=== PATIENT | female | born 1955 | race Caucasian/White ===

== ENCOUNTER → 2018-01-01 | Day surgery (SDC) | payer OTHER, MEDICARE ==
[2017-12-30 12:00] VITALS: BMI 26.4
[~2018-01-01] MED LIST: BUPIVACAINE (PF) 0.5% 30 ML VIAL SQ ONE; DEXAMETHASONE SOD PHOSPHATE 10 MG/ML 1 ML VIAL IV ONE; HEPARIN SODIUM,PORCINE 5,000 UNIT/ML 1 ML VIAL SQ ONE; HYDROcodone/APAP 7.5-325MG 1 EACH TAB PO ONE; KETOROLAC 30 MG/ML 1 ML VIAL ONE; LACTATED RINGERS 1,000 ML IV SCH; LIDOCAINE 1% 20 ML VIAL (10MG/ML) FOR IV START INTRADERMA ONE; LIDOCAINE 1% INJ 10MG/ML (20 ML MDV) ONE; LIDOCAINE 1% INJ 10MG/ML (20 ML MDV) SQ ONE; MIDAZOLAM 2 MG/2 ML VIAL IV PRN; MIDAZOLAM 2 MG/2 ML VIAL ONE; ONDANSETRON 4 MG/2 ML VIAL IVP ONE; PROPOFOL 10 MG/ML 20 ML VIAL IV ONE; Pre Op ABX Message 1 EACH MISC MISCELLANE ONE; SCOPOLAMINE 1.5MG/72HR PATCH TRANSDERM ONE; SODIUM BICARB 4% 5 ML VIAL (0.48 MEQ/ML) MISCELLANE ONE; fentaNYL (PF) 50 MCG/ML 2 ML AMP ONE
--- NOTE | 2018-01-01 08:16 | P.GSHP ---
History of Present Illness H&P Date: 01/01/18 Chief Complaint: Abnormal right mammogram This is a 8-year-old female who presents today for right breast biopsy with needle localization. Patient a previous core biopsy performed which showed intraductal papilloma. Patient presents today for needle localized biopsy. Past Medical History Past Medical History: COPD, Hyperlipidemia, Musculoskeletal Disorder, Rheumatoid Arthritis (RA), Skin Disorder Additional Past Medical History / Comment(s): PSORIASIS RIGHT PALM, HX OF BLEEDING RIGHT NIPPLE History of Any Multi-Drug Resistant Organisms: None Reported Past Surgical History: Hysterectomy, Orthopedic Surgery, Tonsillectomy Additional Past Surgical History / Comment(s): RT ANKLE FX, WITH METAL Past Anesthesia/Blood Transfusion Reactions: Postoperative Nausea & Vomiting ( PONV) Smoking Status: Current every day smoker - Past Family History Mother Family Medical History: Cancer Additional Family Medical History / Comment(s): liver Medications and Allergies Home Medications Medication Instructions Recorded Confirmed Type ALPRAZolam [Xanax] 1 mg PO BID 01/18/14 01/01/18 History Baclofen [Lioresal] 20 mg PO DAILY 01/18/14 01/01/18 History Cholecalciferol [Vitamin D3] 2,000 unit PO DAILY@1200 01/18/14 01/01/18 History Estrogens, Conjugated [Premarin] 0.625 mg PO DAILY 01/18/14 01/01/18 History Leflunomide [Arava] 20 mg PO DAILY 01/18/14 01/01/18 History Meloxicam 15 mg PO DAILY 01/18/14 01/01/18 History PARoxetine HCL [Paxil] 60 mg PO HS 01/18/14 01/01/18 History Simvastatin [Zocor] 40 mg PO HS 01/18/14 01/01/18 History busPIRone HCL [Buspar] 15 mg PO BID 01/18/14 01/01/18 History Albuterol Nebulized [Ventolin 2.5 mg INHALATION Q4H PRN 11/07/14 01/01/18 History Nebulized] Ibuprofen [Motrin] 800 mg PO Q6HR PRN #20 tab 11/07/14 01/01/18 Rx Aspirin 325 mg PO DAILY 12/30/17 01/01/18 History Allergies Allergy/AdvReac Type Severity Reaction Status Date / Time Tetracyclines Allergy Nausea & Verified 01/01/18 08:07 Vomiting venom-honey bee Allergy Anaphylaxis Verified 01/01/18 08:07 [bee venom (honey bee)] procaine [From Novocain] AdvReac HEART Verified 01/01/18 08:07 PALPITATIONS/ANXIETY Surgical - Exam - General well developed, well nourished, no distress - Eyes PERRL - ENT normal pinna - Neck no masses - Respiratory normal expansion - Cardiovascular Rhythm: regular - Abdomen Abdomen: soft, non tender - Integumentary Breasts are within normal limits. There is no mass palpable there is no axillary lymphadenopathy Assessment and Plan Assessment: Abnormal mammogram with intraductal papilloma. We'll perform needle localized biopsy.
[2018-01-01 09:23] VITALS: RESP 16
[2018-01-01 11:13] VITALS: TEMP 97.1
[2018-01-01] MEDS: fentaNYL (PF) 50 MCG/ML 2 ML AMP IV PRN ×2 (11:34→11:49)
[2018-01-01 12:51] VITALS: BP 112/76; PULSE 89
--- NOTE | 2018-01-01 13:29 | P.OP ---
Date of Procedure: 01/01/18 Preoperative Diagnosis: Abnormal right mammogram Postoperative Diagnosis: Abnormal right mammogram Procedure(s) Performed: Right breast lumpectomy with ultrasound-guided needle localization Anesthesia: MALIA Surgeon: Maximilian Fritz Estimated Blood Loss (ml): 10 Pathology: other (Right breast lumpectomy) Condition: stable Disposition: PACU Description of Procedure: The patient's placed on the operating table in the supine position. She received general anesthesia. Her right breast was prepped and draped in usual sterile fashion. The wire had been previously placed by the radiologist. A curvilinear incision was made at the wire site. And then using cautery the subcutaneous tissue divided. Then using the Harmonic focus the core of tissue around the wire site was dissected. The specimen was sent to mammography. The clip was contained within the specimen. At this point the Bovie was used hemostasis. Clips are placed in the biopsy cavity. The skin was closed interrupted 3-0 Monocryl suture. Dermabond was applied. Patient top procedure well and was sent to recovery room stable condition.
--- NOTE | 2018-01-06 16:22 | MM ---
EXAMINATION TYPE: MG pre op needle loc RT DATE OF EXAM: 01/01/2018 COMPARISON: NONE CLINICAL HISTORY: Abnormal mammogram previous abnormal biopsy results, high risk. TECHNIQUE: Needle localization with wire placement and surgical excision of area of concern in the [facility] breast. FINDINGS: The procedure of needle localization with wire placement and than surgical excision was exp lained to the patient. Benefits, alternatives, and risks were discussed. An informed consent was th en obtained. The shortest pathway for procedure was chosen. Shortest pathway was lateral to medial approach. The overlying skin was prepped and draped in usual sterile fashion. Lidocaine buffered with bicarbonate was used as anesthetic into the skin and subcutaneous tissue up to the level of area of concern. A 7 cm needle was used. It was placed via a lateral approach under mammographic guidance. Subsequent 9 0 degrees mammogram show the needle to be in satisfactory position relative to the targeted area, a p reviously placed surgical clip. At this point, wire was placed and the needle was withdrawn. The wi re was fixed to patient's skin. Images were marked for surgeon. The patient tolerated the procedure well without any immediate complication. The patient was kept in the radiology department for short stay after the procedure and then taken to surgery for surgical e xcision. Surgical clip and wire are identified in specimen mammogram. The patient was kept in hospi coret[facility] for short stay after the procedure and then discharged home in stable condition. Specimen: Specimen mammogram is obtained. The surgical clip is within the specimen. Wire overlies the specimen. There is a cut wire within the specimen. IMPRESSION: 1. Successful wire localization and excision of a previously placed surgical clip.
== END | disposition home or self-care (01) ==
LOC: OR 07:40
PROVIDERS: ATTEND Surgery
DX: D24.1 Benign neoplasm of right breast (principal); N60.11 Diffuse cystic mastopathy of right breast; N60.21 Fibroadenosis of right breast; N62 Hypertrophy of breast; J44.9 Chronic obstructive pulmonary disease, unspecified; E78.5 Hyperlipidemia, unspecified; M06.9 Rheumatoid arthritis, unspecified; L40.9 Psoriasis, unspecified; F41.9 Anxiety disorder, unspecified; F32.9 Major depressive disorder, single episode, unspecified; F17.210 Nicotine dependence, cigarettes, uncomplicated; Z79.1 Long term (current) use of non-steroidal anti-inflammatories (NSAID); Z79.82 Long term (current) use of aspirin; Z79.890 Hormone replacement therapy; Z79.899 Other long term (current) drug therapy; Z88.1 Allergy status to other antibiotic agents; Z91.030 Bee allergy status; Z88.4 Allergy status to anesthetic agent
CPT/HCPCS: 93005; 88307; 76098; 19281; 19125; J2250; J1644; J1100; J2405; J2001; J3010; J1885; J2704; 88341; 88342

== ENCOUNTER → 2020-06-02 | Outpatient (CLI) | payer OTHER, MEDICARE ==
--- NOTE | 2020-06-04 12:37 | PE ---
EXAMINATION TYPE: PET CT fusion skull to thigh DATE OF EXAM: 06/02/2020 COMPARISON: CT chest 09/17/2015 Prior PET/CT: None HISTORY: Lung nodule TECHNIQUE: Following the intravenous administration of 11.9 mCi of F-18 FDG, whole body images are p erformed from the skull base to the midthigh. Images are reviewed on the computer in the coronal, ax ial, and sagittal planes. Reconstructed rotating images are created on independent workstation and r eviewed on the computer. A localization and attenuation correction CT is performed in conjunction w ith the PET scan. SCAN: Initial Scan Blood glucose: 105 mg/dL FINDINGS: NECK: No abnormal hypermetabolic activity. THORAX: No abnormal hypermetabolic activity. ABDOMEN/PELVIS: No abnormal hypermetabolic activity. OSSEOUS STRUCTURES: No abnormal hypermetabolic activity. LOCALIZATION CT: Redemonstrated 5 mm pulmonary nodule of the right upper lobe. There is a perifissura l lymph node of the minor fissure redemonstrated. Calcified coronary artery disease. Postsurgical sy nges of the right breast. Left liver hypodense lesion likely represent cyst. Status post cholecystect travis. Colonic diverticulosis. No acute diverticulitis. Status post hysterectomy. Degenerative changes of the spine. COMPARISON: 5 mm pulmonary nodule of the right upper lobe not significantly changed versus 2016 CT co mparison given differences in technique. IMPRESSION: 1. No abnormal hypermetabolic activity. 2. 5 mm pulmonary nodule of the right upper lobe is not significantly changed versus 2016 CT comparis on, and likely benign. This nodule is below threshold criteria for PET CT.
== END | disposition home or self-care (01) ==
LOC: RADPETMAIN 08:01
PROVIDERS: ATTEND Internal Medicine Critical Care Medicine
DX: R91.1 Solitary pulmonary nodule (principal)
CPT/HCPCS: 78815; A9552

== ENCOUNTER 2023-11-02 22:53 | Inpatient (IN) | payer BC, MEDICARE ==
[2023-11-02] MEDS ORDERED: NITROGLYCERIN SL TABS 0.4 MG TAB SUBLINGUAL PRN (23:02)
[2023-11-02] MEDS: HEPARIN SODIUM 1,000 UN/ML (10ML VL) IV ONE ×2 (23:10→23:42)
[2023-11-02] MEDS: ONDANSETRON 4 MG/2 ML VIAL IVP STA (23:11)
[2023-11-02] MEDS: SODIUM CHLORIDE 0.9% 1,000 ML IV STA (23:12)
[2023-11-02] MEDS: MORPHINE SULFATE 4 MG/ML SYRINGE IV PRN (23:13)
--- NOTE | 2023-11-02 23:13 | ED ---
Chest Pain HPI - General Chief Complaint: Chest Pain Stated Complaint: STEMI Source: patient, EMS, RN notes reviewed, old records reviewed Mode of arrival: EMS Limitations: no limitations - History of Present Illness Initial Comments: This is a 68-year-old female to the ER for evaluation of acute chest pain sudden onset of chest pain and back pain that occurred as she was getting ready for bed tonight. Patient has significant shortness of breath but not much different than her normal COPD dyspnea, patient is having back pain and chest pain and tightness currently with which did present with some clamminess and s sweating weaty patient's chest pain been going on for about 2 hours now accompanied by nausea patient has history of smoking and high cholesterol MD Complaint: chest pain -: days(s) Onset: during rest, during exertion Pain Location: substernal, left chest Pain Radiation: LUE Severity: moderate Severity scale (1-10): 4 Quality: tightness, aching Consistency: constant Improves With: nothing Worsens With: nothing Anginal Symptoms: diaphoresis, dyspnea, sense of impending doom Other Symptoms: palpitations Treatments Prior to Arrival: none - Related Data Home Medications Medication Instructions Recorded Confirmed Baclofen [Lioresal] 20 mg PO BID 01/18/14 11/03/23 Leflunomide [Arava] 20 mg PO DAILY 01/18/14 11/03/23 PARoxetine HCL [Paxil] 60 mg PO HS 01/18/14 11/03/23 busPIRone HCL [Buspar] 15 mg PO BID 01/18/14 11/03/23 Anastrozole 1 mg PO DAILY 11/03/23 11/03/23 Cholecalciferol [Vitamin D3 (25 50 mcg PO DAILY 11/03/23 11/03/23 Mcg = 1000 Iu)] Clorazepate Dipotassium [Tranxene 15 mg PO BID 11/03/23 11/03/23 T] Cyanocobalamin (Vitamin B-12) 1,000 mcg PO DAILY 11/03/23 11/03/23 [Vitamin B-12] Fluticasone/Umeclidin/Vilanter 1 puff INHALATION DAILY 11/03/23 11/03/23 [Trelegy Ellipta 200-62.5-25] Folic Acid 0.4 mg PO DAILY 11/03/23 11/03/23 Ondansetron Odt [Zofran ODT] 4 mg PO Q8HR PRN 11/03/23 11/03/23 Orencia (Unknown Dose) 1 dose IV QMONTHLY 11/03/23 11/03/23 Pyridoxine HCl (Vitamin B6) 100 mg PO DAILY 11/03/23 11/03/23 [Vitamin B-6] predniSONE 5 mg PO DAILY PRN 11/03/23 11/03/23 Previous Rx's Medication Instructions Recorded Aspirin 81 mg PO DAILY #30 tab 11/04/23 Atorvastatin [Lipitor] 80 mg PO DAILY #30 tab 11/04/23 Losartan [Cozaar] 12.5 mg PO DAILY #30 tab 11/04/23 Metoprolol Tartrate [Lopressor] 25 mg PO BID #60 tab 11/04/23 Nitroglycerin Sl Tabs [Nitrostat] 0.4 mg SUBLINGUAL Q5M PRN #30 tab 11/04/23 Ticagrelor [Brilinta] 90 mg PO BID #60 tab 11/04/23 Allergies Allergy/AdvReac Type Severity Reaction Status Date / Time venom-honey bee Allergy Anaphylaxis Verified 11/03/23 09:44 [bee venom (honey bee)] procaine [From Novocain] AdvReac HEART Verified 11/03/23 09:44 PALPITATIONS/ANXIETY Tetracyclines AdvReac Nausea & Verified 11/03/23 09:44 Vomiting Review of Systems ROS Statement: Those systems with pertinent positive or pertinent negative responses have been documented in the HPI. ROS Other: All systems not noted in ROS Statement are negative. Past Medical History Past Medical History: COPD, Hyperlipidemia, Musculoskeletal Disorder, Rheumatoid Arthritis (RA), Skin Disorder Additional Past Medical History / Comment(s): PSORIASIS RIGHT PALM, HX OF BLEEDING RIGHT NIPPLE History of Any Multi-Drug Resistant Organisms: None Reported Past Surgical History: Hysterectomy, Orthopedic Surgery, Tonsillectomy Additional Past Surgical History / Comment(s): RT ANKLE FX, WITH METAL Past Anesthesia/Blood Transfusion Reactions: Postoperative Nausea & Vomiting (PONV) Past Psychological History: Anxiety, Depression Past Alcohol Use History: Rare Past Drug Use History: None Reported - Past Family History Mother Family Medical History: Cancer Additional Family Medical History / Comment(s): liver General Exam General appearance: alert, in no apparent distress Head exam: Present: atraumatic, normocephalic, normal inspection Eye exam: Present: normal appearance, PERRL, EOMI. Absent: scleral icterus, conjunctival injection, periorbital swelling ENT exam: Present: normal exam, mucous membranes moist Neck exam: Present: normal inspection. Absent: tenderness, meningismus, lymphadenopathy Respiratory exam: Present: normal lung sounds bilaterally. Absent: respiratory distress, wheezes, rales, rhonchi, stridor Cardiovascular Exam: Present: regular rate, normal rhythm, normal heart sounds. Absent: systolic murmur, diastolic murmur, rubs, gallop, clicks GI/Abdominal exam: Present: soft, normal bowel sounds. Absent: distended, tenderness, guarding, rebound, rigid Extremities exam: Present: normal inspection, full ROM, normal capillary refill. Absent: tenderness, pedal edema, joint swelling, calf tenderness Back exam: Present: normal inspection Neurological exam: Present: alert, oriented X3, CN II-XII intact Psychiatric exam: Present: normal affect, normal mood Skin exam: Present: warm, dry, intact, normal color. Absent: rash Course Vital Signs 11/02/23 11/02/23 11/02/23 22:55 23:25 23:35 Pulse Rate 77 59 L 59 L Respiratory 22 22 22 Rate Blood Pressure 160/97 151/89 151/85 O2 Sat by Pulse 96 97 97 Oximetry - Reevaluation(s) Reevaluation #1: 11/02/23 23:09 Record is reviewed Reevaluation #2: 11/02/23 23:09 Patient has persistent chest pain although improved here in the ER Vital signs are normal stable Reevaluation #3: 11/02/23 23:10 Patient informed of results and questions answered Reevaluation #4: Was pt. sent in by a medical professional or institution (, PA, LEAD ACCOUNTANT, urgent care, hospital, or half-way...) When possible be specific @ -no Did you speak to anyone other than the patient for history (EMS, parent, family, police, friend...)? What history was obtained from this source @ -no Did you review nursing and triage notes (agree or disagree)? Why? @ -agree Are old charts reviewed (outside hosp., previous admission, EMS record, old EKG, old radiological studies, urgent care reports/EKG's, half-way records)? Report findings @ -yes Differential Diagnosis (chest pain, altered mental status, abdominal pain women, abdominal pain men, vaginal bleeding, weakness, fever, dyspnea, syncope, headache, dizziness, GI bleed, back pain, seizure, CVA, palpatations, mental health, musculoskeletal)? @ -prior EKG interpreted by me (3pts min.). @ -yes X-rays interpreted by me (1pt min.). @ -yes negative for acute disease CT interpreted by me (1pt min.). @ -no U/S interpreted by me (1pt. min.). @ -no What testing was considered but not performed or refused? (CT, X-rays, U/S, labs)? Why? @ -none What meds were considered but not given or refused? Why? @ -none Did you discuss the management of the patient with other professionals (professionals i.e. , PA, LEAD ACCOUNTANT, lab, RT, psych nurse, psych social worker, top trimmer, teacher, project control officer, lining caser)? Give summary @ -no Was smoking cessation discussed for >3mins.? @ -no Was critical care preformed (if so, how long)? @ -yes31 Were there social determinants of health that impacted care today? How? (Homelessness, low income, unemployed, alcoholism, drug addiction, transportation, low edu. Level, literacy, decrease access to med. care, usp, rehab)? @ -none Was there de-escalation of care discussed even if they declined (Discuss DNR or withdrawal of care, Hospice)? DNR status @ -no What co-morbidities impacted this encounter? (DM, HTN, Smoking, COPD, CAD, Can cer, CVA, ARF, Chemo, Hep., AIDS, mental health diagnosis, sleep apnea, morbid obesity)? @ -none Was patient admitted / discharged? Hospital course, mention meds given and route, prescriptions, significant lab abnormalities, going to OR and other pertinent info. @ - [address] acute [address] elevated VT coming in for severe chest pain. Patient is admitted for cardiology evaluation and treatment here in the emergency department with persistent severe chest pain Admitted Undiagnosed new problem with uncertain prognosis? @ -no Drug Therapy requiring intensive monitoring for toxicity (Heparin, Nitro, Insulin, Cardizem)? @ -no Were any procedures done? @ -no Diagnosis/symptom? @ -ST elevation VT Acute, or Chronic, or Acute on Chronic? @ -Acute Uncomplicated (without systemic symptoms) or Complicated (systemic symptoms)? @ -Complicated Side effects of treatment? @ -no Exacerbation, Progression, or Severe Exacerbation? @ -exacerbation Poses a threat to life or bodily function? How? (Chest pain, USA, VT, pneumonia, PE, COPD, DKA, ARF, appy, cholecystitis, CVA, Diverticulitis, Homicidal, Suicidal, threat to staff... and all critical care pts) @ -yes significant ST elevation VT Reevaluation #5: Differential Chest Pain: Stable Angina, Unstable Angina, STEMI, NSTEMI Aortic Dissection, Pneumothorax, Musculoskeletal, Esophageal Spasm GERD, Cholecystitis, Pancreatitis, Zoster, this is not meant to be an all-inclusive list. - Consultations Consultation #1: Spoke with cardiology who will see the patient in the ER Consultation #2: Spoke with EM who agrees to admit this patient Chest Pain MDM - MDM 68 [address] with acute [address] elevated VT coming in for severe chest pain. Patient is admitted for cardiology evaluation and treatment here in the emergency department with persistent severe chest pain Critical Care Time Critical Care Time: Yes Total Critical Care Time: 31 Disposition Clinical Impression: Chest pain, ST elevation myocardial infarction (STEMI), COPD (chronic obstructive pulmonary disease) Disposition: ADMITTED IP TO THIS HOSP Condition: Good Is patient prescribed a controlled substance at d/c from ED?: No Time of Disposition: 23:45
--- NOTE | 2023-11-02 23:15 | XR ---
EXAMINATION TYPE: XR chest 1V portable DATE OF EXAM: 11/02/2023 COMPARISON: Chest CT 2015 HISTORY: Chest pain TECHNIQUE: Single frontal view of the chest is obtained. FINDINGS: There is no focal air space opacity, pleural effusion, or pneumothorax seen. The cardiac silhouette size remains within normal limits. The osseous structures are intact. IMPRESSION: No acute process.
[2023-11-02] MEDS: HYDROmorphone 0.5 MG/0.5 ML SYRINGE IVP STA (23:16)
[2023-11-02] MEDS: ASPIRIN 81 MG PO STA (23:16)
[2023-11-02 23:32] LABS: Basophils # (A) 0.1 k/uL (0-0.2); Basophils % (A) 1 %; Eosinophils # (A) 0.2 k/uL (0-0.7); Eosinophils % (A) 2 %; HCT 43.1 % (34.0-46.0); HGB 14.1 gm/dL (11.4-16.0); Lymphocytes # (A) 2.2 k/uL (1.0-4.8); Lymphocytes % (A) 30 %; MCH 29.8 pg (25.0-35.0); MCHC 32.8 g/dL (31.0-37.0); MCV 90.9 fL (80.0-100.0); Monocytes # (A) 0.5 k/uL (0-1.0); Monocytes % (A) 7 %; Neutrophils # (A) 4.3 k/uL (1.3-7.7); Neutrophils % (A) 57 %; Platelet Count 265 k/uL (150-450); RBC 4.74 m/uL (3.80-5.40); RDW 14.2 % (11.5-15.5); WBC 7.4 k/uL (3.8-10.6)
[2023-11-02] MEDS ORDERED: fentaNYL (PF) 50 MCG/ML 2 ML AMP ONE (23:39)
[2023-11-02] MEDS ORDERED: HEPARIN SODIUM 1,000 UN/ML (10ML VL) ONE (23:39)
[2023-11-02] MEDS: IV FLUID CONTINUATION 1,000 ML IV ONE (23:40)
[2023-11-02] MEDS: LIDOCAINE 1% INJ 10MG/ML (20 ML MDV) SQ ONE ×2 (23:40→23:42)
[2023-11-02 23:42] LABS: ALT 103 U/L (4-34); AST 117 U/L (14-36); African American GFR (CKD) 65 (>60 ml/min/1.73 sqM); Alkaline Phosphatase 81 U/L (38-126); Anion Gap 9 mmol/L; Blood Urea Nitrogen 15 mg/dL (7-17); Calcium 8.8 mg/dL (8.4-10.2); Carbon Dioxide 24 mmol/L (22-30); Chloride 105 mmol/L (98-107); Glucose 105 mg/dL (74-99); Lipase 459 U/L (23-300); Magnesium 1.6 mg/dL (1.6-2.3); Non-African American GFR(CKD) 56 (>60 ml/min/1.73 sqM); Potassium 4.1 mmol/L (3.5-5.1); Sodium 138 mmol/L (137-145); Total Bilirubin 0.5 mg/dL (0.2-1.3); Total Protein 6.9 g/dL (6.3-8.2)
[2023-11-02] MEDS: MIDAZOLAM 2 MG/2 ML VIAL IVP ONE (23:42)
[2023-11-02] MEDS ORDERED: TICAGRELOR 90 MG TAB ONE (23:42)
[2023-11-02] MEDS: VERAPAMIL SYRINGE (5 MG/10 ML) INTRAARTER ONE (23:42)
[2023-11-02] MEDS: fentaNYL (PF) 50 MCG/ML 2 ML AMP IVP ONE (23:42)
[2023-11-02] MEDS: TICAGRELOR 90 MG TAB PO ONE (23:45)
[2023-11-02 23:51] LABS: NT-Pro-B-Type Natriuretic Pept 152 pg/mL
[2023-11-03 00:02] LABS: Partial Thromboplastin Time 22.6 sec (22.0-30.0); Prothrombin Time 11.1 sec (10.0-12.5)
[2023-11-03] MEDS: NITROGLYCERIN 1000MCG/10ML SYRINGE INTRACORON ONE (00:13)
[2023-11-03] MEDS: IOPAMIDOL-370 100ML BTL INJ ONE ×2 (00:14→00:35)
[2023-11-03 00:52] LABS: Glucose,Whole Blood 118 mg/dL (70-110)
[2023-11-03] MEDS ORDERED: ZOLPIDEM 5 MG TAB PO PRN (00:52)
[2023-11-03] MEDS ORDERED: RX INFO: IV CONTRAST WAS GIVEN 1 EACH MISC MISCELLANE PRN (00:52)
--- NOTE | 2023-11-03 00:52 | P.PRCINT ---
Percutaneous Coronary Int. - Percutaneous Coronary Intervention Percutaneous Coronary Intervention: PROCEDURES PERFORMED: Left heart catheterization, bilateral coronary angiography, ultrasound guided arterial access, PCI mid circumflex with 3.5 x 28 mm, post dilated with a 4.5mm NC proximally and 3.5mm NC distal edge of stent, IVUS circumflex, Penumbra aspiration thrombectomy of circumflex INDICATION: Inferior STEMI CONSENT:I have discussed the risks, benefits and alternative therapies for the above-mentioned procedure and for both sedation/analgesia as well as necessary blood product administration, if indicated, as they pertain to this patient. The patient has indicated understanding and acceptance of the risks and procedures discussed. PROCEDURE: After the risks, benefits and alternatives of the above mentioned procedure explained in detail with the patient, informed consent was obtained. Patient was taken to the catheterization lab and prepped and draped in usual fashion. Ultrasound guidance was used to assess for arterial access. 1% lidocaine was used to anesthetize the right radial artery. A 6-Tunisian sheath was placed in the right radial artery using modified Seldinger technique and ultrasound guidance. A 6-Tunisian AL 0.75 guide was used to engage the RCA and angiograms were performed. A 6-Tunisian FL 3.5 catheter was used engage the left main and angiograms were performed. The AL 0.75 guide was inserted into the left ventricle and pressure measurements were obtained. The decision was made to perform PCI of the circumflex. Heparin was given for ACT greater than 250. Next, a 6-Tunisian EBU 3.5 guide was used to engage the left main. A 0.014 BMW wire was advanced to the distal circumflex. Given heavy thrombus, penumbra aspiration thrombectomy was performed for 2 passes. Predilation was performed with a 3.0 x 12 mm balloon, with some watermeloning noted. Intravascular ultrasound showed distal reference vessel 3.5 mm and more proximally 4.5 mm. Therefore predilation was performed with a 3.5 x 15 mm noncompliant balloon. Next a 3.5 x 28 mm Xience FREDDY was placed in the mid circumflex. Initially the proximal and distal portion of the stent were postdilated with a 4.5 noncompliant balloon, low atmospheres of 5 at the distal edge. Repeat intravascular ultrasound showed mild decreased expansion of the distal edge of the stent and therefore a 3.5 mm noncompliant balloon was used to post dilate the distal edge of the stent. Repeat intravascular ultrasound showed excellent stent apposition and expansion. Final angiograms were performed. Pre-intervention there is 99% stenosis and SANFORD 1 flow and postintervention there was 0% stenosis and SANFORD-3 flow. The right radial sheath was removed and a TR band was placed with hemostasis achieved. The patient tolerated the procedure well. Patient was transported back to the post catheterization holding area in stable condition. Conscious Sedation: Patient was monitored under the direct supervision of myself for conscious sedation using Versed and fentanyl for a total duration of 49 minutes HEMODYNAMICS: Aorta: 141/76 LV: 144/8, LVEDP 26 SELECTIVE CORONARY ARTERIOGRAPHY: LEFT MAIN: The left main is a large caliber vessel which bifurcates into the LAD and circumflex. There is no significant stenosis. LEFT ANTERIOR DESCENDING CORONARY ARTERY: LAD is a large caliber vessel which wraps around to the apex. There are mild luminal irregularities with mid LAD 20% stenosis. LEFT CIRCUMFLEX CORONARY ARTERY: Left circumflex is a large caliber vessel 99% mid circumflex stenosis. RIGHT CORONARY ARTERY: The right coronary artery is a large caliber vessel which gives off a PDA and PLV branch and is the dominant vessel. There is mild 20-30% RCA stenosis FINAL IMPRESSION: 1. CAD as described above including 20-30% RCA stenosis, mid LAD 20% stenosis, mid circumflex 99% stenosis 2. S/p PCI mid circumflex with 3.5 x 28 mm, post dilated with a 4.5mm NC 3. Elevated left sided filling pressures PLAN: 1. Aggressive risk factor modification per most recent ACC/AHA guidelines. 2. Continue dual antiplatelets with aspirin and Brillinta for 12 months. 3. Smoking cessation discussed and patient given information and referral to [place] quit line.
[2023-11-03] MEDS ORDERED: MAG HYDROX/AL HYDROX/SIMETH 30 ML CUP PO PRN (01:00)
[2023-11-03] MEDS: SODIUM CHLORIDE 0.9% 1,000 ML in EMPTY BAG 1 BAG IV SCH (01:05)
[2023-11-03] MEDS: HYDROmorphone 1 MG/ML 1 ML SYRINGE IVP STA (01:40)
[2023-11-03] MEDS: HEPARIN SOD,PORK IN 0.45% NACL 25,000 UNIT in 0.45% NACL 1 250ML.BAG IV SCH (01:41)
[2023-11-03] MEDS ORDERED: ATROPINE SULFATE 0.1 MG/ML 10ML SYRINGE IV PRN (02:00)
[2023-11-03] MEDS: PANTOPRAZOLE 40 MG/10 ML VIAL IVP SCH (03:12)
[2023-11-03 03:34] LABS: Basophils % (A) 1 %; Eosinophils # (A) 0.1 k/uL (0-0.7); Eosinophils % (A) 2 %; HCT 39.1 % (34.0-46.0); HGB 12.9 gm/dL (11.4-16.0); Lymphocytes # (A) 2.1 k/uL (1.0-4.8); Lymphocytes % (A) 26 %; MCH 30.3 pg (25.0-35.0); MCHC 32.9 g/dL (31.0-37.0); MCV 92.1 fL (80.0-100.0); Mean Platelet Volume 8.5; Monocytes # (A) 0.4 k/uL (0-1.0); Monocytes % (A) 5 %; Neutrophils # (A) 5.1 k/uL (1.3-7.7); Neutrophils % (A) 66 %; Platelet Count 236 k/uL (150-450); RBC 4.25 m/uL (3.80-5.40); RDW 14.1 % (11.5-15.5); WBC 7.8 k/uL (3.8-10.6)
[2023-11-03 04:06] LABS: African American GFR (CKD) 73 (>60 ml/min/1.73 sqM); Anion Gap 6 mmol/L; Blood Urea Nitrogen 14 mg/dL (7-17); Calcium 8.6 mg/dL (8.4-10.2); Carbon Dioxide 24 mmol/L (22-30); Chloride 108 mmol/L (98-107); Glucose 107 mg/dL (74-99); Non-African American GFR(CKD) 63 (>60 ml/min/1.73 sqM); Potassium 4.4 mmol/L (3.5-5.1); Sodium 138 mmol/L (137-145)
[2023-11-03] MEDS ORDERED: METOPROLOL TARTRATE 50 MG TAB PO SCH (09:00)
[2023-11-03] MEDS ORDERED: ASPIRIN 325 MG TAB PO SCH (09:00)
[2023-11-03] MEDS: METOPROLOL TARTRATE 25 MG TAB PO SCH (09:37)
[2023-11-03] MEDS: ATORVASTATIN 80 MG TAB PO SCH (09:37)
[2023-11-03] MEDS: TICAGRELOR 90 MG TAB PO SCH (09:37)
[2023-11-03] MEDS: ASPIRIN 81 MG PO SCH (09:37)
[2023-11-03] MEDS: LOSARTAN 25 MG TAB PO SCH (09:37)
[2023-11-03 10:28] LABS: Chol/HDL Ratio 4.05 Ratio; LDL Cholesterol,Calculated 74.1 mg/dL (0.0-131.0)
[2023-11-03 10:37] VITALS: BMI 34.9
--- NOTE | 2023-11-03 13:30 | CA ---
Transthoracic Echo Report Name: Gloria Juarez Age: 68 Gender: F : 1955 Exam Date: 11/03/2023 08:20 Exam Location: [facility] Ht (in): 71 Wt (lb): 250 Ordering Physician: Tammy Monsalve MD ([id number]) Attending/Referring Phys: Event Host Mary Jerry RCS Procedure CPT: Indications: Post STEMI Cardiac Hx: Technical Quality: Technically difficult study Contrast 1: Definity Total Dose (mL): 1 Contrast 2: Total Dose (mL): MEASUREMENTS (Male / Female) Normal Values 2D ECHO LV Diastolic Diameter PLAX 4.8 cm 4.2 - 5.9 / 3.9 - 5.3 cm LV Systolic Diameter PLAX 3.3 cm IVS Diastolic Thickness 1.2 cm 0.6 - 1.0 / 0.6 - 0.9 cm LVPW Diastolic Thickness 1.0 cm 0.6 - 1.0 / 0.6 - 0.9 cm LV Relative Wall Thickness 0.5 LVOT Diameter 2.2 cm LA Volume 38.5 cm??? 18 - 58 / 22 - 52 cm??? LA Volume Index 15.9 cm???/m??? 16 - 28 cm???/m??? DOPPLER AV Peak Velocity 114.8 cm/s AV Peak Gradient 5.3 mmHg AV Mean Velocity 71.7 cm/s AV Mean Gradient 2.4 mmHg AV Velocity Time Integral 23.3 cm LVOT Peak Velocity 105.6 cm/s LVOT Peak Gradient 4.5 mmHg LVOT Velocity Time Integral 22.5 cm LVOT Stroke Volume 83.4 cm??? LVOT Stroke Volume Index 36.0 ml/m??? LVOT Cardiac Index 2168.9 cm???/min???m??? AV Area Cont Eq vti 3.6 cm??? AV Area Cont Eq pk 3.4 cm??? MV Area PHT 5.3 cm??? Mitral E Point Velocity 57.7 cm/s Mitral A Point Velocity 59.2 cm/s Mitral E to A Ratio 1.0 MV Deceleration Time 142.7 ms TR Peak Velocity 215.9 cm/s TR Peak Gradient 18.6 mmHg PV Peak Velocity 52.7 cm/s PV Peak Gradient 1.1 mmHg FINDINGS Left Ventricle Left ventricular ejection fraction is estimated at 40-45 %. Mildly increased septal wall thickness. Mildly increased posterior wall thickness. Left ventricular cavity size normal. Left ventricular wall thickness normal. Inferoapical hypokinesis Right Ventricle Normal right ventricular size and function. Right ventricular systolic pressure within normal limits. Right Atrium Normal right atrial size. Left Atrium Normal left atrial size. Mitral Valve Mitral valve thickened. Mitral annular calcification. No evidence for mitral valve prolapse. No mitral stenosis. Mild mitral regurgitation. Aortic Valve Trileaflet aortic valve. No aortic valve stenosis or regurgitation. Tricuspid Valve Structurally normal tricuspid valve. No tricuspid stenosis. Mild tricuspid regurgitation. Pulmonic Valve Pulmonic valve not well visualized. No pulmonic stenosis. Trace pulmonic regurgitation. Pericardium No pericardial effusion. Aorta Normal size aortic root and proximal ascending aorta. CONCLUSIONS 1. Mildly impaired left ventricle systolic function with segmental wall motion abnormality 2. Mild mitral and tricuspid regurgitation Previewed by: Dr. Rajwinder De Leon MD (Electronically Signed) Final Date: 03 November 2023 13:30
--- NOTE | 2023-11-03 14:04 | P.HPIM ---
History of Present Illness H&P Date: 11/03/23 History of present illness; patient 68-year-old lady with past medical history significant for hyperlipidemia, COPD, rheumatoid arthritis who presented to the ER because of sudden onset of chest pain and shortness of breath that started tonight. Patient stated that she was all right while she was getting ready for bed she had a sudden onset of shortness of breath and chest pain. Chest pain was central in location, nonradiating, pressure-like, no aggravating or relieving factor associated chest pain. There was complaint of sweating associated chest pain. There was no complaint of orthopnea or PND. There is no complaint of fever or chills. Because of chest pain and shortness of breath aga capellan immediately came to the ER Initial lab work done in the ER showed WBC 9.4, hemoglobin 14.1, platelet count 265, sodium 138, potassium 4.1, BUN 15, creatinine 1.04, glucose 105, troponin 0.326 proBNP 152, lipase 459 EKG done in the ER showed heart rate of 80, ST segment elevation seen in lead2, 3 and aVF, ST segment depressions seen in lead V2 and V3, no T-wave inversions seen. Chest x-ray done in the ER showed no acute process. Human Services Manager was activated patient was taken for emergent cardiac cath. Cardiac cath done showed 20-30% RCA stenosis, mid LAD 20% stenosis, mid circumflex 99% stenosis, S/p PCI mid circumflex with 3.5 x 28 mm, post dilated with a 4.5mm NC Patient admitted to internal medicine service REVIEW OF SYSTEMS: CONSTITUTIONAL: No fever, no malaise, no fatigue. HEENT: No recent visual problems or hearing problems. Denied any sore throat. CARDIOVASCULAR: As mentioned above PULMONARY: As mentioned above GASTROINTESTINAL: No diarrhea, no nausea, no vomiting, no abdominal pain. NEUROLOGICAL: No headaches, no weakness, no numbness. HEMATOLOGICAL: Denies any bleeding or petechiae. GENITOURINARY: Denies any burning micturition, frequency, or urgency. MUSCULOSKELETAL/RHEUMATOLOGICAL: Denies any joint pain, swelling, or any muscle pain. ENDOCRINE: Denies any polyuria or polydipsia. The rest of the 14-point review of systems is negative. PHYSICAL EXAMINATION: GENERAL: The patient is alert and oriented x3, not in any acute distress. Well developed, well nourished. HEENT: Pupils are round and equally reacting to light. EOMI. No scleral icterus. No conjunctival pallor. Normocephalic, atraumatic. No pharyngeal erythema. No thyromegaly. CARDIOVASCULAR: S1 and S2 present. No murmurs, rubs, or gallops. PULMONARY: Chest is clear to auscultation, no wheezing or crackles. ABDOMEN: Soft, nontender, nondistended, normoactive bowel sounds. No palpable organomegaly. MUSCULOSKELETAL: No joint swelling or deformity. EXTREMITIES: No cyanosis, clubbing, or pedal edema. NEUROLOGICAL: Gross neurological examination did not reveal any focal deficits. SKIN: No rashes. Assessment and plan ST elevation OR Hyperlipidemia Rheumatoid arthritis COPD Monitor vital signs Monitor CBC Monitor CMP Continue telemetry monitoring Trend troponins. Ordered 2D echo Ordered lipid panel Ordered HbA1c level Cardiac cath done showed 20-30% RCA stenosis, mid LAD 20% stenosis, mid circumflex 99% stenosis, S/p PCI mid circumflex with 3.5 x 28 mm, post dilated with a 4.5mm NC Continue aspirin and Brilinta Cardiology following Labs and medication were reviewed.. Continue same treatment. Continue with symptomatic treatment. Resume home medication. Monitor labs and vitals. DVT and GI prophylaxis. Further recommendations as per clinical course of the patie nt Dictation was produced using [employer] Interactive dictation software. please excuse any grammatical, word or spelling errors. Past Medical History Past Medical History: COPD, Hyperlipidemia, Musculoskeletal Disorder, Rheumatoid Arthritis (RA), Skin Disorder Additional Past Medical History / Comment(s): PSORIASIS RIGHT PALM, HX OF BLEEDING RIGHT NIPPLE, stage 4 breast cancer 2020, 3 breats cancer surgeries 2020, 5 breast biopsies 2022 History of Any Multi-Drug Resistant Organisms: None Reported Past Surgical History: Hysterectomy, Orthopedic Surgery, Tonsillectomy Additional Past Surgical History / Comment(s): RT ANKLE FX, WITH METAL Past Anesthesia/Blood Transfusion Reactions: Postoperative Nausea & Vomiting (PONV) Past Psychological History: Anxiety, Depression Smoking Status: Current every day smoker Past Alcohol Use History: Rare Additional Past Alcohol Use History / Comment(s): SMOKES 1PPD FROM AGE 19 Past Drug Use History: None Reported - Past Family History Mother Family Medical History: Cancer Additional Family Medical History / Comment(s): liver Medications and Allergies Home Medications Medication Instructions Recorded Confirmed Type ALPRAZolam [Xanax] 1 mg PO BID 01/18/14 11/03/23 History Baclofen [Lioresal] 20 mg PO BID 01/18/14 11/03/23 History Cholecalciferol [Vitamin D3 (25 2,000 unit PO DAILY@1200 01/18/14 11/03/23 History Mcg = 1000 Iu)] Estrogens, Conjugated [Premarin] 0.625 mg PO DAILY 01/18/14 01/01/18 History Leflunomide [Arava] 20 mg PO DAILY 01/18/14 11/03/23 History Meloxicam 15 mg PO DAILY 01/18/14 11/03/23 History PARoxetine HCL [Paxil] 60 mg PO HS 01/18/14 11/03/23 History Simvastatin [Zocor] 40 mg PO HS 01/18/14 01/01/18 History busPIRone HCL [Buspar] 15 mg PO BID 01/18/14 11/03/23 History Albuterol Nebulized [Ventolin 2.5 mg INHALATION Q4H PRN 11/07/14 01/01/18 History Nebulized] Ibuprofen [Motrin] 800 mg PO Q6HR PRN #20 tab 11/07/14 01/01/18 Rx Aspirin 325 mg PO DAILY 12/30/17 01/01/18 History Docusate [Colace] 100 mg PO BID #20 capsule 01/01/18 Rx HYDROcodone/APAP 7.5-325MG [Surfside 1 tab PO Q4H PRN 3 Days #18 tab 01/01/18 Rx 7.5-325] Anastrozole 1 mg PO DAILY 11/03/23 11/03/23 History Atorvastatin [Lipitor] 40 mg PO DAILY 11/03/23 11/03/23 History Clorazepate Dipotassium [Tranxene 15 mg PO BID 11/03/23 11/03/23 History T] Fluticasone/Umeclidin/Vilanter 1 puff INHALATION DAILY 11/03/23 11/03/23 History [Trelegy Ellipta 200-62.5-25] Ondansetron Odt [Zofran Odt] 4 mg PO Q8HR PRN 11/03/23 11/03/23 History predniSONE 5 mg PO DAILY PRN 11/03/23 11/03/23 History Allergies Allergy/AdvReac Type Severity Reaction Status Date / Time Tetracyclines Allergy Nausea & Verified 01/01/18 08:07 Vomiting venom-honey bee Allergy Anaphylaxis Verified 01/01/18 08:07 [bee venom (honey bee)] procaine [From Novocain] AdvReac HEART Verified 01/01/18 08:07 PALPITATIONS/ANXIETY Physical Exam Vitals: Vital Signs Temp Pulse Pulse Resp BP BP Pulse Ox 11/03/23 07:00 65 17 110/74 94 L 11/03/23 06:00 64 19 110/64 95 11/03/23 05:00 69 15 109/73 93 L 11/03/23 04:00 98.2 F 71 15 113/79 94 L 11/03/23 03:00 70 18 110/74 94 L 11/03/23 02:15 80 12 107/66 93 L 11/03/23 02:00 74 16 99/85 93 L 11/03/23 01:30 75 17 121/77 90 L 11/03/23 01:00 97.6 F 77 20 121/82 90 L 11/02/23 23:35 59 L 22 151/85 97 11/02/23 23:25 59 L 22 151/89 97 11/02/23 22:55 77 22 160/97 96 Intake and Output 11/02/23 11/03/23 11/03/23 22:59 06:59 14:59 Intake Total 700 100 Output Total 500 0 Balance 200 100 Intake: IV 700 100 Sodium Chloride 0.9% 1, 600 100 000 ml In Empty Bag 1 bag @ 1 ML/KG/HR 95.254 mls/ hr IV .[id number] COUNTS INCLUDE 234 BEDS AT THE [facility] Rx#: [id number] Output: Urine 500 0 Other: Voiding Method External Catheter # Voids 1 Weight 95.254 kg 113.5 kg Results CBC & Chem 7: 11/03/23 02:58 11/03/23 02:58 Labs: Abnormal Lab Results - Last 24 Hours (Table) 11/02/23 11/02/23 11/03/23 Range/Units 22:55 22:55 00:50 APTT (22.0-30.0) sec Chloride (98-107) mmol/L Glucose 105 H (74-99) mg/dL POC Glucose (mg/dL) 118 H (70-110) mg/dL AST 117 H (14-36) U/L ALT 103 H (4-34) U/L Troponin I 0.326 H* (0.000-0.034) ng/mL Lipase 459 H (23-300) U/L 11/03/23 11/03/23 11/03/23 Range/Units 02:58 02:58 02:58 APTT 89.1 H (22.0-30.0) sec Chloride 108 H (98-107) mmol/L Glucose 107 H (74-99) mg/dL POC Glucose (mg/dL) (70-110) mg/dL AST (14-36) U/L ALT (4-34) U/L Troponin I 4.200 H* (0.000-0.034) ng/mL Lipase (23-300) U/L Thrombosis Risk Factor Assmnt - Choose All That Apply Any of the Below Risk Factors Present?: Yes Each Factor Represents 1 point: Abnormal pulmonary function (COPD), Acute OR, Obesity (BMI >25) Other Risk Factors: Yes Each Risk Factor Represents 2 Points: Age 61-74 years Thrombosis Risk Factor Assessment Total Risk Factor Score: 5 Thrombosis Risk Factor Assessment Level: High Risk
--- NOTE | 2023-11-03 17:30 | P.CRDCN ---
History of Present Illness History of present illness: This is Dr. Rojas dictating a consult on this patient The patient was interviewed and examined in the emergency room on October, IMPRESSION / ASSESSMENT: Acute ST elevation WA with a 99% occlusion of the mid circumflex vessel 20% mid LAD stenosis, 20 to 30% RCA stenosis Patent left main Status post PCI to the mid circumflex performed PLAN: Dual antiplatelet therapy with aspirin and Brilinta for 12 months Smoking cessation Atorvastatin 80 mg p.o. daily 2D echo Doppler study Beta-blockers Follow-up with Dr. Rojas postdischarge HPI Paged by the ER for an ST elevation WA last night at 11 PM on 02 November 2023 68-year-old female who started experiencing nausea and upper GI upset with some upper back discomfort and mild chest discomfort for about 3 hours prior to arrival She was found to have an ST elevations on twelve-lead EKG which was transmitted to the ER When I reviewed the twelve-lead EKG in the ER it showed ST elevations in the inferior leads as well as ST depression V1 through V2 3 with elevations in V5 and V6 and depressions in lead I and aVL consistent with an inferior posterior lateral WA She was short of breath mildly diaphoretic I reviewed her chest x-ray and it did not show any mediastinal widening and she was taken to [facility] after discussion with Dr. Anaya and underwent coronary angiography and intervention She has a history of lipidemia and is on atorvastatin She denied diabetes hypertension She has a history of smoking and COPD. She also had a remote history of breast cancer treatment initial blood pressure was about 153/90 mmHg when I saw her pulse rate was in the 70s she was treated with IV heparin aspirin and she had already taken her atorvastatin ROS: No fever chills or rigors, no cough, phlegm or expectoration, He reported nausea and upper GI symptoms for 3 hours prior to arrival no hematuria, dysuria, no musculoskeletal complaints, no strokes or seizures, no skin lesions. EXAMINATION: She was in the ER in bed, mildly uncomfortable complaining of nausea mild anterior chest discomfort left precordial as well as discomfort close to the left scapula in the back She was not diaphoretic no respiratory distress Lung examination reveals bilaterally reduced air entry with scattered rhonchi Normal heart sounds no murmurs or gallop or rub No lower extremity edema No orthopnea REVIEW OF LABS, ECG & MEDICAL DATA She was on atorvastatin Past Medical History Past Medical History: COPD, Hyperlipidemia, Musculoskeletal Disorder, Rheumatoid Arthritis (RA), Skin Disorder Additional Past Medical History / Comment(s): PSORIASIS RIGHT PALM, HX OF BLEEDING RIGHT NIPPLE, stage 4 breast cancer 2020, 3 breats cancer surgeries 2020, 5 breast biopsies 2022 History of Any Multi-Drug Resistant Organisms: None Reported Past Surgical History: Hysterectomy, Orthopedic Surgery, Tonsillectomy Additional Past Surgical History / Comment(s): RT ANKLE FX, WITH METAL Past Anesthesia/Blood Transfusion Reactions: Postoperative Nausea & Vomiting (PONV) Past Psychological History: Anxiety, Depression Smoking Status: Current every day smoker Past Alcohol Use History: Rare Additional Past Alcohol Use History / Comment(s): SMOKES 1PPD FROM AGE 19 Past Drug Use History: None Reported - Past Family History Mother Family Medical History: Cancer Additional Family Medical History / Comment(s): liver Medications and Allergies Home Medications Medication Instructions Recorded Confirmed Type Baclofen [Lioresal] 20 mg PO BID 01/18/14 11/03/23 History Leflunomide [Arava] 20 mg PO DAILY 01/18/14 11/03/23 History Meloxicam 15 mg PO DAILY 01/18/14 11/03/23 History PARoxetine HCL [Paxil] 60 mg PO HS 01/18/14 11/03/23 History busPIRone HCL [Buspar] 15 mg PO BID 01/18/14 11/03/23 History Anastrozole 1 mg PO DAILY 11/03/23 11/03/23 History Atorvastatin [Lipitor] 40 mg PO DAILY 11/03/23 11/03/23 History Cholecalciferol [Vitamin D3 (25 50 mcg PO DAILY 11/03/23 11/03/23 History Mcg = 1000 Iu)] Clorazepate Dipotassium [Tranxene 15 mg PO BID 11/03/23 11/03/23 History T] Cyanocobalamin (Vitamin B-12) 1,000 mcg PO DAILY 11/03/23 11/03/23 History [Vitamin B-12] Fluticasone/Umeclidin/Vilanter 1 puff INHALATION DAILY 11/03/23 11/03/23 History [Trelegy Ellipta 200-62.5-25] Folic Acid 0.4 mg PO DAILY 11/03/23 11/03/23 History Ondansetron Odt [Zofran Odt] 4 mg PO Q8HR PRN 11/03/23 11/03/23 History Orencia (Unknown Dose) 1 dose IV QMONTHLY 11/03/23 11/03/23 History Pyridoxine HCl (Vitamin B6) 100 mg PO DAILY 11/03/23 11/03/23 History [Vitamin B-6] predniSONE 5 mg PO DAILY PRN 11/03/23 11/03/23 History Allergies Allergy/AdvReac Type Severity Reaction Status Date / Time venom-honey bee Allergy Anaphylaxis Verified 11/03/23 09:44 [bee venom (honey bee)] procaine [From Novocain] AdvReac HEART Verified 11/03/23 09:44 PALPITATIONS/ANXIETY Tetracyclines AdvReac Nausea & Verified 11/03/23 09:44 Vomiting Physical Exam Vitals: Vital Signs Temp Pulse Pulse Resp BP BP Pulse Ox 11/03/23 16:00 98.7 F 68 20 96/70 97 11/03/23 12:00 98.2 F 56 L 21 125/82 96 11/03/23 11:00 62 16 112/98 95 11/03/23 10:00 66 12 133/83 94 L 11/03/23 09:00 64 20 127/86 94 L 11/03/23 08:00 98.7 F 62 16 108/71 94 L 11/03/23 07:00 65 17 110/74 94 L 11/03/23 06:00 64 19 110/64 95 11/03/23 05:00 69 15 109/73 93 L 11/03/23 04:00 98.2 F 71 15 113/79 94 L 11/03/23 03:00 70 18 110/74 94 L 11/03/23 02:15 80 12 107/66 93 L 11/03/23 02:00 74 16 99/85 93 L 11/03/23 01:30 75 17 121/77 90 L 11/03/23 01:00 97.6 F 77 20 121/82 90 L 11/02/23 23:35 59 L 22 151/85 97 11/02/23 23:25 59 L 22 151/89 97 11/02/23 22:55 77 22 160/97 96 Intake and Output 11/03/23 11/03/23 11/03/23 06:59 14:59 22:59 Intake Total 700 200 Output Total 500 1000 Balance 200 -800 Intake: IV 700 200 Sodium Chloride 0.9% 1, 600 200 000 ml In Empty Bag 1 bag @ 1 ML/KG/HR 95.254 mls/ hr IV .[id number] [facility] Rx#: [id number] Output: Urine 500 1000 Other: Voiding Method External Catheter External Catheter # Voids 1 1 Weight 113.5 kg 113.5 kg Results 11/03/23 02:58 11/03/23 02:58 Cardiac Enzymes 11/02/23 11/02/23 11/03/23 Range/Units 22:55 22:55 02:58 AST 117 H (14-36) U/L Troponin I 0.326 H* 4.200 H* (0.000-0.034) ng/mL Coagulation 11/02/23 11/03/23 11/03/23 Range/Units 22:55 02:58 11:10 PT 11.1 (10.0-12.5) sec APTT 22.6 89.1 H 23.0 (22.0-30.0) sec Lipids 11/03/23 Range/Units 02:58 Triglycerides 153.00 H (0.00-149.00) mg/dL Cholesterol 139.00 (0.00-200.00) mg/dL HDL Cholesterol 34.30 L (40.00-60.00) mg/dL Cholesterol/HDL Ratio 4.05 Ratio CBC 11/02/23 11/03/23 Range/Units 22:55 02:58 WBC 7.4 7.8 (3.8-10.6) k/uL RBC 4.74 4.25 (3.80-5.40) m/uL Hgb 14.1 12.9 (11.4-16.0) gm/dL Hct 43.1 39.1 (34.0-46.0) % Plt Count 265 236 (150-450) k/uL Comprehensive Metabolic Panel 11/02/23 11/03/23 Range/Units 22:55 02:58 Sodium 138 138 (137-145) mmol/L Potassium 4.1 4.4 (3.5-5.1) mmol/L Chloride 105 108 H (98-107) mmol/L Carbon Dioxide 24 24 (22-30) mmol/L BUN 15 14 (7-17) mg/dL Creatinine 1.04 0.95 (0.52-1.04) mg/dL Glucose 105 H 107 H (74-99) mg/dL Calcium 8.8 8.6 (8.4-10.2) mg/dL AST 117 H (14-36) U/L ALT 103 H (4-34) U/L Alkaline Phosphatase 81 (38-126) U/L Total Protein 6.9 (6.3-8.2) g/dL Albumin 4.0 (3.5-5.0) g/dL Current Medications Generic Name Dose Route Start Last Admin Trade Name Freq PRN Reason Stop Dose Admin Al Hydroxide/Mg Hydroxide 30 ml 11/03/23 01:00 Mag Hydrox/Al Hydrox/Simeth 30 Ml Cup PO Q4HR PRN Heartburn Aspirin 81 mg 11/03/23 09:00 11/03/23 09:37 Aspirin 81 Mg PO 81 mg DAILY ELBA Administration Atorvastatin Calcium 80 mg 11/03/23 09:00 11/03/23 09:37 Atorvastatin 80 Mg Tab PO 80 mg DAILY ELBA Administration Atropine Sulfate 0.5 mg 11/03/23 02:00 Atropine Sulfate 0.1 Mg/Ml 10ml Syringe IV ONCE PRN Symptomatic Bradycardia Losartan Potassium 12.5 mg 11/03/23 09:00 11/03/23 09:37 Losartan 25 Mg Tab PO 12.5 mg DAILY ELBA Administration Metoprolol Tartrate 25 mg 11/03/23 09:00 11/03/23 09:37 Metoprolol Tartrate 25 Mg Tab PO 25 mg BID ELBA Administration Miscellaneous Information 1 each 11/03/23 00:52 Rx Info: Iv Contrast Was Given 1 Each Misc MISCELLANE 11/05/23 00:52 DAILY PRN Per Protocol Morphine Sulfate 4 mg 11/02/23 23:02 11/02/23 23:13 Morphine Sulfate 4 Mg/Ml Syringe IV 4 mg Q4HR PRN Administration Chest Pain Nitroglycerin 0.4 mg 11/02/23 23:02 Nitroglycerin Sl Tabs 0.4 Mg Tab SUBLINGUAL Q5M PRN Chest Pain Pantoprazole Sodium 40 mg 11/03/23 03:04 11/03/23 09:37 Pantoprazole 40 Mg/10 Ml Vial IVP 40 mg BID ELBA Administration Ticagrelor 90 mg 11/03/23 09:00 11/03/23 09:37 Ticagrelor 90 Mg Tab PO 90 mg BID [facility] Administration Protocol Zolpidem Tartrate 5 mg 11/03/23 00:52 Zolpidem 5 Mg Tab PO HS PRN Insomnia Intake and Output 11/03/23 11/03/23 11/03/23 06:59 14:59 22:59 Intake Total 700 200 Output Total 500 1000 Balance 200 -800 Intake: IV 700 200 Sodium Chloride 0.9% 1, 600 200 000 ml In Empty Bag 1 bag @ 1 ML/KG/HR 95.254 mls/ hr IV .[id number] [facility] Rx#: [id number] Output: Urine 500 1000 Other: Voiding Method External Catheter External Catheter # Voids 1 1 Weight 113.5 kg 113.5 kg Patient Weight 11/04/23 06:59 Weight 113.5 kg 11/03/23 02:58 11/03/23 02:58
[2023-11-03] MEDS: PARoxetine 20 MG TAB PO SCH (19:59)
[2023-11-03] MEDS: busPIRone HCl 5 MG TAB PO SCH (20:00)
[2023-11-03] MEDS: IPRATROPIUM 0.5 MG/2.5 ML NEBU INHALATION SCH (20:37)
[2023-11-04 04:52] VITALS: TEMP 98.3
--- NOTE | 2023-11-04 06:29 | PN ---
PROGRESS NOTE This lady in early hours of this morning came in with an inferior ST-elevation [place], underwent stenting by Dr. Anaya. She had PCI of circumflex with a drug-eluting stent. She is doing well. Mid circumflex was stented, hemodynamically stable. She has moderate disease in the RCA and LAD. Plan is to continue current medical regimen. If she is very stable, consider moving to telemetry tomorrow. I will obtain echocardiogram to assess LV function and transfer to this evening. Vitals are stable. S1-S2 heard normally. Lungs revealed decent air entry. Abdomen and lower extremity exam unchanged. Cardiac cath site is clean and dry with a good pulse. MMODL / IJN: [id number] /
[2023-11-04] MEDS: CYANOCOBALAMIN 500 MCG TAB PO SCH (08:03)
[2023-11-04] MEDS: LEFLUNOMIDE 20 MG TAB PO SCH (08:03)
[2023-11-04] MEDS: CHOLECALCIFEROL 25 MCG (1000 IU) TABLET PO SCH (08:03)
[2023-11-04] MEDS: PYRIDOXINE 50 MG TAB PO SCH (08:03)
[2023-11-04] MEDS: FOLIC ACID 1 MG TAB PO SCH (08:03)
[2023-11-04] MEDS: ANASTROZOLE 1 MG TAB PO SCH (08:03)
[2023-11-04] MEDS: SYMBICORT 80-4.5 MCG INHALER INHALATION SCH (08:17)
[2023-11-04 08:25] VITALS: RESP 16
[2023-11-04 09:55] LABS: ALT 96 U/L (4-34); AST 137 U/L (14-36); African American GFR (CKD) 77 (>60 ml/min/1.73 sqM); Albumin 3.7 g/dL (3.5-5.0); Alkaline Phosphatase 78 U/L (38-126); Anion Gap 8 mmol/L; Blood Urea Nitrogen 15 mg/dL (7-17); Calcium 9.4 mg/dL (8.4-10.2); Carbon Dioxide 21 mmol/L (22-30); Chloride 108 mmol/L (98-107); Glucose 128 mg/dL (74-99); Non-African American GFR(CKD) 67 (>60 ml/min/1.73 sqM); Potassium 4.4 mmol/L (3.5-5.1); Sodium 137 mmol/L (137-145); Total Bilirubin 0.5 mg/dL (0.2-1.3); Total Protein 6.6 g/dL (6.3-8.2)
[2023-11-04] MEDS: MELOXICAM 7.5 MG TAB PO SCH (10:10)
[2023-11-04 10:23] LABS: HCT 41.6 % (34.0-46.0); HGB 13.8 gm/dL (11.4-16.0); MCH 30.1 pg (25.0-35.0); MCHC 33.2 g/dL (31.0-37.0); MCV 90.7 fL (80.0-100.0); Mean Platelet Volume 8.9; Platelet Count 233 k/uL (150-450); RBC 4.59 m/uL (3.80-5.40); RDW 14.3 % (11.5-15.5); WBC 8.2 k/uL (3.8-10.6)
[2023-11-04 11:34] VITALS: PULSE 60
[2023-11-04 12:10] VITALS: BP 111/68
--- NOTE | 2023-11-04 12:36 | P.DS ---
Providers Date of admission: 11/02/23 23:02 Expected date of discharge: 11/04/23 Attending physician: Castro Razo Consults: 11/02/23 23:02 Consult Physician Urgent Consulting Provider: Anthony Rojas Consult Reason/Comments: stemi Do you want consulting provider notified?: Yes 11/03/23 00:52 Consult Physician Routine Consulting Provider: [facility] Consult Reason/Comments: Post Interventional Patient Do you want consulting provider notified?: Already Contacted Primary care physician: Kendal Paris DO Hospital Course: Discharge diagnoses; ST elevation [place] Hyperlipidemia Rheumatoid arthritis COPD Hospital course; patient 68-year-old lady with past medical history significant for hyperlipidemia, COPD, rheumatoid arthritis who presented to the ER because of sudden onset of chest pain and shortness of breath that started tonight. Patient stated that she was all right while she was getting ready for bed she had a sudden onset of shortness of breath and chest pain. Chest pain was central in location, nonradiating, pressure-like, no aggravating or relieving factor associated chest pain. There was complaint of sweating associated chest pain. There was no complaint of orthopnea or PND. There is no complaint of fever or chills. Because of chest pain and shortness of breath patient immediately came to the ER Initial lab work done in the ER showed WBC 9.4, hemoglobin 14.1, platelet count 265, sodium 138, potassium 4.1, BUN 15, creatinine 1.04, glucose 105, troponin 0.326 proBNP 152, lipase 459 EKG done in the ER showed heart rate of 80, ST segment elevation seen in lead2, 3 and aVF, ST segment depressions seen in lead V2 and V3, no T-wave inversions seen. Chest x-ray done in the ER showed no acute process. [employer] was activated patient was taken for emergent cardiac cath. Cardiac cath done showed 20-30% RCA stenosis, mid LAD 20% stenosis, mid circumflex 99% stenosis, S/p PCI mid circumflex with 3.5 x 28 mm, post dilated with a 4.5mm NC Patient admitted to internal medicine service 11/03. Patient seen and examined. No acute overnight. Vital signs stable. Cardiology cleared the patient for discharge on aspirin and Brilinta. Outpatient follow-up with cardiology PHYSICAL EXAMINATION: GENERAL: The patient is alert and oriented x3, not in any acute distress. Well developed, well nourished. HEENT: Pupils are round and equally reacting to light. EOMI. No scleral icterus. No conjunctival pallor. Normocephalic, atraumatic. No pharyngeal erythema. No thyromegaly. CARDIOVASCULAR: S1 and S2 present. No murmurs, rubs, or gallops. PULMONARY: Chest is clear to auscultation, no wheezing or crackles. ABDOMEN: Soft, nontender, nondistended, normoactive bowel sounds. No palpable organomegaly. MUSCULOSKELETAL: No joint swelling or deformity. EXTREMITIES: No cyanosis, clubbing, or pedal edema. NEUROLOGICAL: Gross neurological examination did not reveal any focal deficits. SKIN: No rashes. Dictation was produced using [employer] ([employer]) dictation software. please excuse any grammatical, word or spelling errors. Patient Condition at Discharge: Good Plan - Discharge Summary Discharge Rx Participant: Yes New Discharge Prescriptions: New Aspirin 81 mg PO DAILY #30 tab Losartan [Cozaar] 12.5 mg PO DAILY #30 tab Atorvastatin [Lipitor] 80 mg PO DAILY #30 tab Metoprolol Tartrate [Lopressor] 25 mg PO BID #60 tab Nitroglycerin Sl Tabs [Nitrostat] 0.4 mg SUBLINGUAL Q5M PRN #30 tab PRN Reason: Chest Pain Ticagrelor [Brilinta] 90 mg PO BID #60 tab Continue busPIRone HCL [Buspar] 15 mg PO BID Baclofen [Lioresal] 20 mg PO BID PARoxetine HCL [Paxil] 60 mg PO HS Leflunomide [Arava] 20 mg PO DAILY Ondansetron Odt [Zofran ODT] 4 mg PO Q8HR PRN PRN Reason: Nausea predniSONE 5 mg PO DAILY PRN PRN Reason: swelling Fluticasone/Umeclidin/Vilanter [Trelegy Ellipta 200-62.5-25] 1 puff INHALATION DAILY Folic Acid 0.4 mg PO DAILY Clorazepate Dipotassium [Tranxene T] 15 mg PO BID Anastrozole 1 mg PO DAILY Cholecalciferol [Vitamin D3 (25 Mcg = 1000 Iu)] 50 mcg PO DAILY Orencia (Unknown Dose) 1 dose IV QMONTHLY Pyridoxine HCl (Vitamin B6) [Vitamin B-6] 100 mg PO DAILY Cyanocobalamin (Vitamin B-12) [Vitamin B-12] 1,000 mcg PO DAILY Discontinued Meloxicam 15 mg PO DAILY Atorvastatin [Lipitor] 40 mg PO DAILY Discharge Medication List Baclofen [Lioresal] 20 mg PO BID 01/18/14 [History] Leflunomide [Arava] 20 mg PO DAILY 01/18/14 [History] PARoxetine HCL [Paxil] 60 mg PO HS 01/18/14 [History] busPIRone HCL [Buspar] 15 mg PO BID 01/18/14 [History] Anastrozole 1 mg PO DAILY 11/03/23 [History] Cholecalciferol [Vitamin D3 (25 Mcg = 1000 Iu)] 50 mcg PO DAILY 11/03/23 [History] Clorazepate Dipotassium [Tranxene T] 15 mg PO BID 11/03/23 [History] Cyanocobalamin (Vitamin B-12) [Vitamin B-12] 1,000 mcg PO DAILY 11/03/23 [History] Fluticasone/Umeclidin/Vilanter [Trelegy Ellipta 200-62.5-25] 1 puff INHALATION DAILY 11/03/23 [History] Folic Acid 0.4 mg PO DAILY 11/03/23 [History] Ondansetron Odt [Zofran ODT] 4 mg PO Q8HR PRN 11/03/23 [History] Orencia (Unknown Dose) 1 dose IV QMONTHLY 11/03/23 [History] Pyridoxine HCl (Vitamin B6) [Vitamin B-6] 100 mg PO DAILY 11/03/23 [History] predniSONE 5 mg PO DAILY PRN 11/03/23 [History] Aspirin 81 mg PO DAILY #30 tab 11/04/23 [Rx] Atorvastatin [Lipitor] 80 mg PO DAILY #30 tab 11/04/23 [Rx] Losartan [Cozaar] 12.5 mg PO DAILY #30 tab 11/04/23 [Rx] Metoprolol Tartrate [Lopressor] 25 mg PO BID #60 tab 11/04/23 [Rx] Nitroglycerin Sl Tabs [Nitrostat] 0.4 mg SUBLINGUAL Q5M PRN #30 tab 11/04/23 [Rx] Ticagrelor [Brilinta] 90 mg PO BID #60 tab 11/04/23 [Rx] Follow up Appointment(s)/Referral(s): Anthony Rojas MD [STAFF PHYSICIAN] - 1 Week Kendal Paris DO [Primary Care Provider] - 1-2 days Discharge Disposition: HOME SELF-CARE
--- NOTE | 2023-11-05 03:39 | PN ---
PROGRESS NOTE SUBJECTIVE: Ms. Juarez presented with acute inferior ST-elevation [place], underwent stenting of mid circumflex. She is doing well today, resting comfortably. No chest pain or shortness of breath. Ejection fraction in the 45% range. OBJECTIVE: VITAL SIGNS: Stable. NECK: No JVD. CARDIOVASCULAR: S1, S2 heard normally. LUNGS: Clear. ABDOMEN: Unchanged. LOWER EXTREMITIES: Unchanged. PLAN: To increase activity. Discharged on current medications including dual antiplatelet therapy and see Dr. Rojas in about 1 week. I discussed my thoughts in detail with the patient. Patient can be discharged today. MMODL / IJN: [id number] /
== END 2023-11-04 13:09 | disposition home or self-care (01) | DRG 322 ==
LOC: EC 22:53 → 2SICU 23:02 → 3SCARD 11-03 18:35
PROVIDERS: ADMIT Hospitalist; ATTEND Hospitalist
PROC: 4A023N7 Measurement of Cardiac Sampling and Pressure, Left Heart, Percutaneous Approach (ICD-10-PCS; principal; 2023-11-03)
PROC: 02C03ZZ Extirpation of Matter from Coronary Artery, One Artery, Percutaneous Approach (ICD-10-PCS; principal; 2023-11-03)
PROC: B240ZZ3 Ultrasonography of Single Coronary Artery, Intravascular (ICD-10-PCS; principal; 2023-11-03)
PROC: 027034Z Dilation of Coronary Artery, One Artery with Drug-eluting Intraluminal Device, Percutaneous Approach (ICD-10-PCS; principal; 2023-11-03)
PROC: B2111ZZ Fluoroscopy of Multiple Coronary Arteries using Low Osmolar Contrast (ICD-10-PCS; principal; 2023-11-03)
DX: I21.19 ST elevation (STEMI) myocardial infarction involving other coronary artery of inferior wall (principal); M06.9 Rheumatoid arthritis, unspecified; J44.9 Chronic obstructive pulmonary disease, unspecified; I25.10 Atherosclerotic heart disease of native coronary artery without angina pectoris; L40.9 Psoriasis, unspecified; F17.200 Nicotine dependence, unspecified, uncomplicated; F32.A Depression, unspecified; F41.9 Anxiety disorder, unspecified; E78.5 Hyperlipidemia, unspecified; Z85.3 Personal history of malignant neoplasm of breast; Z79.899 Other long term (current) drug therapy; Z79.82 Long term (current) use of aspirin; Z79.811 Long term (current) use of aromatase inhibitors; Z79.1 Long term (current) use of non-steroidal anti-inflammatories (NSAID); Z88.1 Allergy status to other antibiotic agents; Z88.4 Allergy status to anesthetic agent; Z71.6 Tobacco abuse counseling
CPT/HCPCS: 71045; 76937; 80048; 80053; 80061; 83036; 83690; 83735; 83880; 84484; 85025; 85027; 85049; 85610; 85730; 92973; 92978; 93005; 93306; 93458; 94640; 94760; 96374; 96375; 99291